=== PATIENT | male | born 1980 | race African-American/Black ===

== ENCOUNTER 2023-11-17 17:42 | Emergency (ER) | payer BC, SELFPAY ==
[2023-11-17] MEDS ORDERED: Ibuprofen 800 MG TAB ONE (17:58)
[2023-11-17] MEDS ORDERED: Boostrix 0.5 ML (Tdap) VIAL (>/=7 yrs of age) ONE (17:59)
[2023-11-17] MEDS ORDERED: Amoxicillin/Potassium Clav 875 MG TAB ONE (19:41)
== END 2023-11-17 19:46 | disposition home or self-care (01) ==
LOC: NAV ERS 17:42
DX: S62.610B Displaced fracture of proximal phalanx of right index finger, initial encounter for open fracture (principal); W23.1XXA Caught, crushed, jammed, or pinched between stationary objects, initial encounter
CPT/HCPCS: 90471; 90715